=== PATIENT | female | born 1950 | race Caucasian/White ===

== ENCOUNTER 2017-03-26 07:30 | Inpatient (IN) ==
[2017-03-28 12:10] LABS: Appearance,Urine CLEAR; Bacteria,Urine 0 /hpf (0); Bilirubin,Urine NEG (NEG); Color,Urine YELLOW; Glucose,Urine (UA) NEGATIVE (NEG); Leukocyte Esterase,Urine 75 /uL (NEG); Mucus,Urine FEW /hpf (0); Nitrate,Urine NEG (NEG); Protein,Urine NEG (NEG); Specific Gravity,Urine 1.012 (1.000-1.035); Urine Blood 0.03 mg/dL (<0.03); Urine RBC 2 /hpf (0-1); Urine Squamous Epithelial Cell 1 /hpf (0-4); Urine WBC 2 /hpf (0-4); Urobilinogen,Urine NEG (NEG)
[2017-03-28 12:48] LABS: Basophils # (Auto) 0 K/mcL (0.0-0.3); Basophils % (Auto) 0.8 % (0.0-2.0); Eosinophils # (Auto) 0.2 K/mcL (0.0-0.7); Eosinophils % (Auto) 2.8 % (0.0-7.0); Granulocytes % (Auto) 60.3 % (38.0-78.0); Lymphocytes # (Auto) 1.6 K/mcL (1.5-4.8); Lymphocytes % (Auto) 28.3 % (15.5-49.0); Mean Corpuscular HGB Conc 33.4 g/dL (31.0-36.0); Mean Corpuscular Hemoglobin 27.7 pg (26.0-34.0); Monocytes # (Auto) 0.5 K/mcL (0.1-0.9); Monocytes % (Auto) 7.8 % (1.0-12.0); Platelet Count 299 K/mcL (140-440); RBC 4.93 M/mcL (4.00-5.20); Red Cell Distribution Width 13.2 % (11.5-14.5)
[2017-03-28 13:01] LABS: Blood Urea Nitrogen 16 mg/dl (8-23)
[2017-04-02] MEDS ORDERED: ceFAZolin 1 GM VIAL IV SCH (05:00)
[2017-04-02] MEDS ORDERED: CELECOXIB 200 MG CAPSULE PO SCH (05:00)
[2017-04-02] MEDS ORDERED: PREGABALIN 75 MG CAPSULE PO SCH (05:00)
[2017-04-02] MEDS ORDERED: ACETAMINOPHEN 500 MG TABLET PO SCH (05:00)
[2017-04-02] MEDS ORDERED: oxyCODONE 10 MG TAB.ER.12H PO SCH (05:00)
[2017-04-02] MEDS ORDERED: MIDAZOLAM 2 MG/2 ML VIAL IV ONE (09:25)
[2017-04-02] MEDS ORDERED: ETOMIDATE 20 MG/10 ML VIAL IV ONE (09:25)
[2017-04-02] MEDS ORDERED: PHENYLEPHRINE 10 MG/ML VIAL IV ONE (09:25)
[2017-04-02] MEDS ORDERED: ONDANSETRON 4 MG/2 ML VIAL IV ONE (09:25)
[2017-04-02] MEDS ORDERED: fentaNYL 100 MCG/2 ML VIAL IV ONE (09:25)
[2017-04-02] MEDS ORDERED: TRANEXAMIC ACID 1,000 MG/10 ML VIAL IV ONE ×2 (09:25→10:57)
[2017-04-02] MEDS ORDERED: GLYCOPYRROLATE 0.2 MG/ML VIAL IV ONE (09:25)
[2017-04-02] MEDS ORDERED: LIDOCAINE HCL/PF 100 MG/5 ML SYRINGE IV ONE (09:25)
[2017-04-02] MEDS ORDERED: KETAMINE 100 MG/ML ML IV ONE (09:25)
[2017-04-02] MEDS ORDERED: DEXAMETHASONE 10 MG/ML VIAL IV ONE (09:25)
[2017-04-02] MEDS ORDERED: GENTAMICIN SULFATE 800 MG/20 ML VIAL IR ONE (10:33)
[2017-04-02] MEDS ORDERED: ONDANSETRON 4 MG/2 ML VIAL IV PRN ×2 (10:57→11:19)
[2017-04-02] MEDS ORDERED: TEMAZEPAM 15 MG CAPSULE PO PRN (10:57)
[2017-04-02] MEDS ORDERED: MAGNESIUM HYDROXIDE 30 ML ORAL.SUSP PO PRN (10:57)
[2017-04-02] MEDS ORDERED: BENZOCAINE/MENTHOL 1 LOZENGE PO PRN (10:57)
[2017-04-02] MEDS ORDERED: POLYETHYLENE GLYCOL 3350 17 GM PACKET PO PRN (10:57)
[2017-04-02] MEDS ORDERED: HYDROmorphone 2 MG/ML SYRINGE IV PRN (10:57)
[2017-04-02] MEDS ORDERED: BISACODYL 10 MG SUPP.RECT PR PRN (10:57)
[2017-04-02] MEDS ORDERED: ACETAMINOPHEN 325 MG TABLET PO PRN (10:57)
[2017-04-02] MEDS ORDERED: FLEETS ADULT ENEMA PR PRN (10:57)
--- NOTE | 2017-04-02 10:57 | Brief Operative Note ---
Date of procedure: 04/02/17 Pre-op diagnosis: Left hip severe djd Post-op diagnosis: same Procedure: Left RANDALL Grafts/Implants: Yes Anesthesia: GETA Complications Description: 04/02/17 10:57 none Surgeon: Terry Soni Motor Room Controller: Michael Duarte Estimated blood loss (cc): 100 Specimens Removed/Pathology: none sent Condition: stable Disposition: PACU
[2017-04-02] MEDS ORDERED: METHOCARBAMOL 1,000 MG/10 ML VIAL IV PRN (11:19)
[2017-04-02] MEDS ORDERED: MEPERIDINE 25 MG/ML SYRINGE IV PRN (11:19)
[2017-04-02] MEDS ORDERED: fentaNYL 100 MCG/2 ML VIAL IV PRN (11:19)
[2017-04-02] MEDS ORDERED: IPRATROPIUM/ALBUTEROL 3 ML AMPUL.NEB NEB PRN (11:19)
[2017-04-02] MEDS ORDERED: LACTATED RINGERS 1,000 ML IV SCH (11:30)
--- NOTE | 2017-04-02 11:40 | Operative Note ---
DATE OF OPERATION: 04/02/2017 PREOPERATIVE DIAGNOSIS: Left hip degenerative arthritis. POSTOPERATIVE DIAGNOSIS: Left hip degenerative arthritis. PROCEDURE: Left total hip arthroplasty. SURGEON: Terry Soni MD PUBLIC HEALTH NUTRITIONIST: Michael Duarte PA-C ANESTHESIA: General LMA anesthesia. COMPLICATIONS: None. IMPLANTS: A size 6 cemented stem with a 16 mm centralizer with a +5 ceramic neck length with a dual mobility ball, a 54 acetabular cup with a 35 mm screw. DESCRIPTION OF PROCEDURE: The patient was brought to the operating room and put to sleep with general LMA anesthesia. Once asleep, the patient had the left hip sterilely prepped and draped in the usual sterile fashion. Once confirmed as the operative site, a timeout had been performed and initials recognized. We then made a superior posterior approach. Through this we identified the superior posterior structures. After placing the Charnley retractor we dislocated the hip and made the neck cut at 34 mm. We then subluxed the hip anteriorly and removed the labrum, and reamed up to the size 54 cup, implanted a 54 cup with a dual mobility liner with a 35 mm screw. We then broached up to the size 6 stem. An x-ray was taken with a +5 neck length. This seemed to fit very nicely. Leg lengths seem to be symmetric. The hip was extremely stable up to 80 degrees of internal rotation with adduction. We irrigated thoroughly and removed osteophytes anteriorly, cemented into place a size 6 stem with a 16 mm distal centralizer. We irrigated thoroughly and reduced the hip after the cement had dried with a +6+5 mm neck length ceramic with a dual mobility outer body. It was stable throughout the range of motion. We irrigated, closed the capsule with #2 Ethibond and closed the fascial layer with #1 StrataFix. We closed the skin with 2-0 Vicryl and adhesive closure. The patient tolerated this well without complication. RBH:renee Job ID: [id number] Doc ID: [id number] Terry Soni MD
--- NOTE | 2017-04-02 11:51 | XRay Report ---
HISTORY: Reason for Exam:Post-Op Total Hip FINDINGS: There is a well-positioned left total hip prosthesis. No fracture is present. Mild arthritis is present in the right hip. 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 IMPRESSION: Well-positioned left hip prosthesis Interpreted and Authenticated by: Rell Garcia 04/02/17
[2017-04-02] MEDS: KETOROLAC 15 MG/ML VIAL IV PRN ×2 (14:25→18:18)
[2017-04-02] MEDS: HYDROcodone/APAP 10/325MG TABLET PO PRN ×3 (14:25→22:13)
[2017-04-02] MEDS: 0.45 % SODIUM CHLORIDE 1,000 ML IV SCH (14:26)
[2017-04-02] MEDS: 0.9 % SODIUM CHLORIDE 10 ML SYRINGE IV SCH ×2 (14:32→22:27)
[2017-04-02] MEDS: ceFAZolin 1 GM VIAL IV SCH (17:15)
[2017-04-02] MEDS: DOCUSATE SODIUM 100 MG CAPSULE PO SCH (20:31)
[2017-04-02] MEDS: ASPIRIN 325 MG ENTERIC COATED TABLET PO SCH (20:31)
[2017-04-02] MEDS ORDERED: rOPINIRole 0.25 MG TABLET PO SCH (21:00)
[2017-04-02] MEDS ORDERED: SENNOSIDES 1 TABLET PO SCH (21:00)
[2017-04-03] MEDS: 0.45 % SODIUM CHLORIDE 1,000 ML IV SCH ×2 (00:11→07:57)
[2017-04-03] MEDS: ceFAZolin 1 GM VIAL IV SCH (00:43)
[2017-04-03] MEDS: HYDROcodone/APAP 10/325MG TABLET PO PRN ×3 (05:13→13:37)
[2017-04-03] MEDS: 0.9 % SODIUM CHLORIDE 10 ML SYRINGE IV SCH (05:18)
--- NOTE | 2017-04-03 07:41 | Orthopedic Progress Note ---
Subjective Patient information: Note initiated : 04/03/17 at 7:40 am Service Date, if different from initiated Date: [] Patient: Pearl Stratton 66 y/o F admitted on 04/02/17 for Left Total Hip Arthroplasty. Chief Complaint: [Pt is stable this morning on post operative day 1 without any significant concerns or complaints. Patients vital signs have remained stable. Patients dressing is dry and exhibits a grossly intact neurovascular and neuromotor exam. Patients 10 point ROS is otherwise negative. ] Objective Vital signs: Vital Signs Temp Pulse Resp BP BP Pulse Ox 04/03/17 03:12 97.8 F 70 20 125/79 92 04/02/17 23:42 98.4 F 79 20 127/78 92 04/02/17 22:00 92 04/02/17 20:00 98.2 F 77 20 127/80 93 04/02/17 14:45 70 143/92 92 04/02/17 13:45 58 L 140/79 97 04/02/17 13:15 57 L 12 146/89 94 04/02/17 12:45 59 L 14 146/82 95 04/02/17 12:30 57 L 12 137/79 94 04/02/17 12:15 57 L 12 146/83 93 04/02/17 12:00 96.9 F L 56 L 12 143/78 95 04/02/17 11:51 98.1 F 64 14 141/82 98 04/02/17 11:40 72 16 135/74 98 04/02/17 11:30 72 18 126/74 97 04/02/17 11:20 67 15 114/65 97 04/02/17 11:15 97.5 F 69 15 104/65 97 04/02/17 08:05 98.1 F 71 12 148/75 94 Intake and Output 04/02/17 04/03/17 04/03/17 21:59 05:59 13:59 Intake Total 1450 / 1450 1075 / 1075 Output Total 200 / 200 1200 / 1200 Balance 1250 / 1250 -125 / -125 Intake: IV 975 / 975 Sodium Chloride 0.45% 1, 975 / 975 000 ml @ 100 mls/hr IV . Q10H [facility] Rx#:[id number] Oral 1450 / 1450 100 / 100 Output: Void Amount 200 / 200 1200 / 1200 Other: Meal Dinner Percent of Meal Consumed 100% Feeding Ability Independent # Voids 1 1 Weight 160 lb 8 oz Intake & Output: Intake & Output 04/02/17 04/03/17 04/03/17 21:59 05:59 13:59 Intake Total 1450 / 1450 1075 / 1075 Output Total 200 / 200 1200 / 1200 Balance 1250 / 1250 -125 / -125 Weight 160 lb 8 oz Intake: IV 975 / 975 Sodium Chloride 0.45% 1, 975 / 975 000 ml @ 100 mls/hr IV . Q10H [facility] Rx#:[id number] Oral 1450 / 1450 100 / 100 Output: Void Amount 200 / 200 1200 / 1200 Other: Meal Dinner Percent of Meal Consumed 100% Feeding Ability Independent # Voids 1 1 Incision: Yes healing Dressing: Yes clean Neurological exam IM: Yes motor sensory intact, Yes neurovascular intact Extremities exam IM: Yes Foot pink and warm, Yes neurovascular intact - Labs CBC & BMP: 04/03/17 05:53 03/28/17 10:36 Labs: Orthopedic Labs 03/28/17 10:36 PT 13.5 INR 1.0 APTT 40 H 04/03/17 03/28/17 05:53 10:36 Hgb 13.6 Hct 34.4 L 40.9 Assessment and Plan (1) Hx of total hip arthroplasty Patient has been educated regarding wound care and dressings, follow up recommendations, and medication use. We will f/u with the patient within 2-3 weeks for wound check. Status: Acute
--- NOTE | 2017-04-03 07:43 | Discharge Summary ---
Ortho Discharge - RANDALL - Patient Instructions Diet: Regular Diet Activity: activity as tolerated, weight bearing as tolerated Total Hip Protocol: Follow activity instructions as provided by Physical Therapy. Dressing Care: May shower in 2 days Patient Education: Total Hip Replacement (DC) Additional Instructions: [facility] [phone] APPOINTMENT: @ 9:00 am. Please check in 15 minutes early for paperwork. Bring your insurance cards and photo ID. Wear comfortable clothes and consider taking pain medications 30 minutes prior to your appointment. Your PT orders have been faxed to them. - Problem Maintenance (1) Hx of total hip arthroplasty Status: Acute - Follow Up Plan Follow Up Appointments: Terry Soni MD [Physician] - Disposition: Home, Self-Care Prognosis: Good Rehab Potential: Good I certify that the patient requires SNF services: No Overall status at discharge: patient is progressing back to baseline - Orders For Discharge Prescriptions: Aspirin [Ecotrin] 325 mg PO BID #60 Docusate Sodium [Colace] 100 mg PO BID #60 capsule HYDROcodone/APAP 10/325MG [[place] 10/325Mg] 1 - 2 tab PO Q4HP PRN #75 tablet PRN Reason: Pain
[2017-04-03] MEDS: DOCUSATE SODIUM 100 MG CAPSULE PO SCH (08:37)
[2017-04-03] MEDS: ASPIRIN 325 MG ENTERIC COATED TABLET PO SCH (08:37)
[2017-04-03] MEDS ORDERED: VITAMIN D3 1,000 UNIT TABLET PO SCH (09:00)
[2017-04-03] MEDS ORDERED: MULTIVIT,THER IRON,CA,FA & MIN 1 TABLET PO SCH (09:00)
== END 2017-04-03 16:00 | disposition home or self-care (01) | DRG 470 ==
LOC: MEDSUR 04-02 06:49
PROVIDERS: ADMIT Orthopaedic Surgery; ATTEND Orthopaedic Surgery